=== PATIENT | female | born 1940 | race Caucasian/White ===

== ENCOUNTER → 2017-01-14 | Outpatient (CLI) | payer OTHER ==
--- NOTE | 2017-01-14 14:44 | REPMRS ---
Patient History The patient states she had a clinical breast exam in Patient is postmenopausal. Family history of prostate cancer in brother at age 50 or over. Digital Woman Screen Mammo: January 14, 2017 - Exam #: [id number] Bilateral CC and MLO view(s) were taken. Technologist: Maryann Burton, Technologist Prior study comparison: June 27, 2014, digital woman screen mammo performed at [facility]. November 30, 2011, bilateral bilat screen digital mammo performed at [facility]. FINDINGS: There are scattered fibroglandular densities. There has been no change in the appearance of the mammogram from the prior studies. There is a mild amount of residual fibroglandular tissue which is fairly symmetric. A small area of mild tissue asymmetry in the upper outer quadrant on the right breast is unchanged. There is no interval development of dominant mass, architectural distortion, or clustered microcalcification suggestive of malignancy. There are scattered, small, benign calcifications of doubtful clinical significance. There are benign arterial calcifications noted. No significant changes when compared with prior studies. ASSESSMENT: BI-RADS/ACR category 2 mammogram. Benign finding(s). Recommendation Routine screening mammogram in 1 year (for women over age 40). This mammogram was interpreted with the aid of an FDA-approved computer-aided dectection system. A. Negative x-ray reports should not delay biopsy if a dominant or clinically suspicious mass is present. B. Four to eight percent of cancers are not identified by mammography. C. Adenosis and dense breast may obscure an underlying neoplasm. Electronically Signed By: Zaid Burk MD 01/14/17 [id number]
== END ==
LOC: M WHC 13:16
PROVIDERS: ATTEND Nurse Practitioner Family
DX: Z01.419 Encounter for gynecological examination (general) (routine) without abnormal findings (principal); Z12.31 Encounter for screening mammogram for malignant neoplasm of breast; Z78.0 Asymptomatic menopausal state; Z12.12 Encounter for screening for malignant neoplasm of rectum
CPT/HCPCS: 82270; G0101; G0202

== ENCOUNTER 2017-11-01 06:53 | Day surgery (SDC) | payer OTHER ==
[~2017-11-01] VITALS: Ht 160 cm; Wt 94.8 kg
[~2017-11-01 06:53] MED LIST: CHEW500C2 PO
[2017-11-01] MEDS ORDERED: NS 1,000 ML IV ONE (07:00)
[2017-11-01] MEDS ORDERED: LIDOCAINE 2% INJ 100 MG/5 ML SDV (FOR ANES.) As Ordered ONE (07:51)
[2017-11-01] MEDS ORDERED: PROPOFOL 200 MG/20 ML VIAL As Ordered ONE (07:51)
--- NOTE | 2017-11-01 07:59 | ROOR ---
Patient Name: Joya Lynn Procedure Date: 11/01/2017 7:41 AM Date of : 1940 Age: 77 Room: [facility] Gender: Female Note Status: Finalized Procedure: Colonoscopy Indications: High risk colon cancer surveillance: Personal history of colonic polyps Providers: Jose LAKE MD Referring MD: Leti Miller NP Requesting Provider: Medicines: Monitored Anesthesia Care Complications: No immediate complications. Procedure: Pre-Anesthesia Assessment: - The heart rate, respiratory rate, oxygen saturations, blood pressure, adequacy of pulmonary ventilation, and response to care were monitored throughout the procedure. The Colonoscope was introduced through the anus and advanced to the cecum, identified by appendiceal orifice and ileocecal valve. The colonoscopy was performed without difficulty. The patient tolerated the procedure well. The quality of the bowel preparation was good. Findings: The perianal and digital rectal examinations were normal. The colon is otherwise normal on direct and retroflexion views. Impression: - Internal hemorrhoids. - Diverticulosis.. - The colon is otherwise normal on direct and retroflexion views. - No specimens collected. Recommendation: - Repeat colonoscopy in 5 years for surveillance based on personal history of previous adenomatous polyps. Jose Lake MD Jose LAKE MD 11/01/2017 7:59:03 AM This report has been signed electronically. Number of Addenda: 0 Note Initiated On: 11/01/2017 7:41 AM Estimated Blood Loss: Estimated blood loss: none.
[2017-11-01 08:17] VITALS: BP 132/82
== END 2017-11-01 08:27 | disposition home or self-care (01) ==
LOC: M OPP 06:53
PROVIDERS: ATTEND Internal Medicine Gastroenterology
DX: Z12.11 Encounter for screening for malignant neoplasm of colon (principal); K64.8 Other hemorrhoids; K57.30 Diverticulosis of large intestine without perforation or abscess without bleeding; Z86.010 Personal history of colon polyps; M17.0 Bilateral primary osteoarthritis of knee

== ENCOUNTER → 2019-12-03 | Outpatient (CLI) | payer MEDICARE, OTHER ==
--- NOTE | 2019-12-03 15:21 | REPMRS ---
Patient History The patient states she had a clinical breast exam in 2019. Family history of prostate cancer at age 50 or over in brother. Digital Woman Screen Mammo: December 03, 2019 - Exam #: [id number] Bilateral CC and MLO view(s) were taken. Technologist: Susannah Tapia, Technologist Prior study comparison: January 14, 2017, digital woman screen mammo performed at [facility]. June 27, 2014, digital woman screen mammo performed at [facility] [place]. November 30, 2011, bilateral bilat screen digital mammo performed at [facility] [place]. FINDINGS: There are scattered fibroglandular densities. There has been no change in the appearance of the mammogram from the prior studies. There is a mild amount of scattered fibroglandular density which is fairly symmetric. There is no interval development of dominant mass, architectural distortion, or grouped microcalcification suggestive of malignancy. 3-D tomosynthesis shows no additional findings. Assessment: BI-RADS/ACR category 1 mammogram. Negative Mammogram. Recommendation Routine screening mammogram of both breasts in 1 year (for women over age 40). This patient's Lifetime Breast Cancer Risk is estimated at 2.0 %. This mammogram was interpreted with the aid of an FDA-approved computer-aided dectection system. Electronically Signed By: Jerman Marion MD 12/03/19 [id number]
--- NOTE | 2019-12-05 13:53 | DEXA ---
AP SPINE L1 - L4 1.352 1.3 3.1 LT FEMUR TOTAL 1.006 0.0 2.0 LT NECK 0.894 -1.0 1.1 RT FEMUR TOTAL 1.081 0.6 2.6 RT NECK 0.956 -0.6 1.5 TOTAL BODY TOTAL OTHER COMMENTS: Normal bone densitometry of the spine. Normal bone densitometry of the right hip. There is low bone density of the left hip. The density of the spine is increased 8.4% since the initial exam on 09/21/2005. The spine density has increased 0.4% since the most recent exam on 06/27/2014. The density of the left hip has decreased 8.2% since the initial exam on 09/21/2005. The density of the left hip has decreased 7.3% since the most recent exam on 06/27/2014. The density of the right hip has decreased 4.0% since the initial exam on 09/21/2005. The density of the right hip has decreased 3.7% since the most recent exam on 06/27/2014. FOLLOW-UP: Recommendation for the next bone density exam: 2 years. [id number]
== END ==
LOC: M WHC 13:40
PROVIDERS: ATTEND Nurse Practitioner Family
DX: Z12.31 Encounter for screening mammogram for malignant neoplasm of breast (principal); N95.9 Unspecified menopausal and perimenopausal disorder; Z80.42 Family history of malignant neoplasm of prostate
CPT/HCPCS: 77063; 77067; 77080; G0463

== ENCOUNTER 2023-03-08 09:07 | Day surgery (SDC) | payer MEDICARE ==
[~2023-03-08] VITALS: Ht 160 cm; Wt 86.1 kg
[~2023-03-08 09:07] MED LIST changes: +CALC-362 PO; -CHEW500C2 PO; +LOSA25TA13 PO
[2023-03-08] MEDS ORDERED: LIDOCAINE 2% 100MG/5ML SDV (FOR ANES.) As Ordered ONE (10:11)
[2023-03-08] MEDS ORDERED: propofoL 200 MG/20 ML VIAL As Ordered ONE (10:11)
[2023-03-08 11:00] VITALS: BP 177/84
== END 2023-03-08 11:11 | disposition home or self-care (01) ==
LOC: M OPP 09:07
PROVIDERS: ATTEND Internal Medicine Gastroenterology
DX: D12.5 Benign neoplasm of sigmoid colon (principal); K57.30 Diverticulosis of large intestine without perforation or abscess without bleeding; K64.8 Other hemorrhoids; Z80.0 Family history of malignant neoplasm of digestive organs; Z86.010 Personal history of colon polyps

== ENCOUNTER 2023-05-31 09:52 | Day surgery (SDC) | payer MEDICARE ==
[~2023-05-31] VITALS: Ht 160 cm; Wt 86.2 kg
[~2023-05-31 09:52] MED LIST changes: +CEFUROXIME 1MG/0.1ML INTRACAMERAL INJ As Ordered ONE; +LIDOCAINE 1% SDV 5ML VIAL As Ordered ONE; +LOSA50TA28 PO; +PROPARACAINE 0.5% OPHTH SOL 15ML OD ONE; +SERT25TA21 PO
[2023-05-31] MEDS ORDERED: BSS IRR 500ML/OMIDRIA 4ML IRR BAG (OR ONLY) As Ordered ONE (11:06)
[2023-05-31] MEDS: CYCLOPENTOLATE 1% OPHTH SOLN 2ML BTL OD SCH ×2 (11:23→11:24)
[2023-05-31] MEDS: OFLOXACIN 0.3 % (OCUFLOX) OPTH SOL 5ML OD SCH ×2 (11:23→11:24)
[2023-05-31] MEDS: TROPICAMIDE 1% OPHTH SOLN 15ML OD SCH ×2 (11:23→11:24)
[2023-05-31] MEDS: PHENYLEPHRINE 2.5% OPHTH SOL 2ML OD SCH ×2 (11:23→11:24)
[2023-05-31] MEDS ORDERED: fentaNYL 100 MCG/2 ML INJECTION As Ordered ONE (11:26)
[2023-05-31] MEDS ORDERED: MIDAZOLAM INJ 2MG/2ML VIAL As Ordered ONE (11:26)
[2023-05-31 12:52] VITALS: BP 163/74; TEMP 97.8; O2SAT 96
== END 2023-05-31 13:15 | disposition home or self-care (01) ==
LOC: M SDC 09:52
PROVIDERS: ATTEND Ophthalmology
DX: H25.11 Age-related nuclear cataract, right eye (principal); I10 Essential (primary) hypertension; Z79.899 Other long term (current) drug therapy
CPT/HCPCS: 66984; J0697; J1097; J2250; J3010; V2632

== ENCOUNTER 2023-07-05 09:51 | Day surgery (SDC) | payer MEDICARE ==
[~2023-07-05] VITALS: Ht 160 cm; Wt 86.5 kg
[~2023-07-05 09:51] MED LIST changes: +ACETYLCHOLINE OPHTH SOLN 1% 2ML (MIOCHOL-E) As Ordered ONE; -CEFUROXIME 1MG/0.1ML INTRACAMERAL INJ As Ordered ONE; +CYCLOPENTOLATE 1% OPHTH SOLN 2ML BTL OS SCH; +OFLOXACIN 0.3 % (OCUFLOX) OPTH SOL 5ML OS SCH; +PHENYLEPHRINE 2.5% OPHTH SOL 2ML OS SCH; -PROPARACAINE 0.5% OPHTH SOL 15ML OD ONE; +PROPARACAINE 0.5% OPHTH SOL 15ML OS ONE; +TROPICAMIDE 1% OPHTH SOLN 15ML OS SCH
[2023-07-05] MEDS ORDERED: fentaNYL 100 MCG/2 ML INJECTION As Ordered ONE (10:11)
[2023-07-05] MEDS ORDERED: MIDAZOLAM INJ 2MG/2ML VIAL As Ordered ONE (10:11)
[2023-07-05] MEDS ORDERED: CEFUROXIME 1MG/0.1ML INTRACAMERAL INJ As Ordered ONE (10:51)
[2023-07-05] MEDS ORDERED: TROPICAMIDE 1% OPHTH SOLN 15ML OS SCH (11:45)
[2023-07-05] MEDS ORDERED: CYCLOPENTOLATE 1% OPHTH SOLN 2ML BTL OS SCH (11:45)
[2023-07-05] MEDS ORDERED: PROPARACAINE 0.5% OPHTH SOL 15ML OS ONE (11:45)
[2023-07-05] MEDS ORDERED: PHENYLEPHRINE 2.5% OPHTH SOL 2ML OS SCH (11:45)
[2023-07-05] MEDS ORDERED: OFLOXACIN 0.3 % (OCUFLOX) OPTH SOL 5ML OS SCH (11:45)
[2023-07-05] MEDS ORDERED: DUOVISC (0.50ML VISCOAT/0.85ML PROVISC) OPHTH KIT IO ONE (12:26)
[2023-07-05 12:38] VITALS: BP 179/85; TEMP 97.2; O2SAT 97
== END 2023-07-05 12:59 | disposition home or self-care (01) ==
LOC: M SDC 09:51
PROVIDERS: ATTEND Ophthalmology
DX: H25.12 Age-related nuclear cataract, left eye (principal); H21.81 Floppy iris syndrome; I10 Essential (primary) hypertension
CPT/HCPCS: 66982; J0697; J2250; J3010; V2632